=== PATIENT | female | born 1980 | race Caucasian/White ===

== ENCOUNTER 2017-02-07 20:33 | Emergency (ER) | payer OTHER ==
[2017-02-07 21:33] LABS: CALCIUM 8.4 mg/dL (8.5-10.1); CARBON DIOXIDE 24.3 mmol/L (21-32); CHLORIDE SERUM 104 mmol/L (98-107); CREATININE SERUM 0.7 mg/dL (0.6-1.0); GFR1 > 60 mL/min; GLUCOSE SERUM 107 mg/dL (74-106); POTASSIUM SERUM 3.2 mmol/L (3.5-5.1); SODIUM SERUM 140 mmol/L (136-145)
[2017-02-07 21:37] LABS: ALKALINE PHOSPHATASE 45 U/L (46-116); ALT/SGPT 18 U/L (14-59); AST/SGOT 15 U/L (15-37); BILIRUBIN TOTAL 0.29 mg/dL (0.20-1.00); LIPASE 506 IU/L (73-393); TOTAL PROTEIN, SERUM 7.6 g/dL (6.4-8.2)
[2017-02-07 23:28] VITALS: BP 124/89
== END 2017-02-07 23:28 | disposition home or self-care (01) ==
LOC: ED 20:33
PROVIDERS: Emergency Medicine
DX: R10.13 Epigastric pain (principal); K85.90 Acute pancreatitis without necrosis or infection, unspecified
CPT/HCPCS: J0500; J2270; J7030; Q0092

== ENCOUNTER 2017-12-19 10:44 | Emergency (ER) | payer OTHER ==
[~2017-12-19] VITALS: Ht 160 cm; Wt 61.7 kg
[2017-12-19 10:55] VITALS: BP 125/69; Ht 160 cm; Wt 61.7 kg
[2017-12-22 11:28] LABS: RAPID PLASMA REAGIN Non Reactive (Non Reactive)
== END 2017-12-19 12:22 | disposition home or self-care (01) ==
LOC: ED 10:44
PROVIDERS: Emergency Medicine
DX: N76.0 Acute vaginitis (principal)
CPT/HCPCS: 82962; 87491; 87591

== ENCOUNTER 2018-04-14 16:19 | Emergency (ER) | payer OTHER ==
[~2018-04-14] VITALS: Ht 160 cm; Wt 66.7 kg
[2018-04-14 16:23] VITALS: BP 130/67; Ht 160 cm; Wt 66.7 kg
== END 2018-04-14 18:00 | disposition home or self-care (01) ==
LOC: ED 16:19
DX: J06.9 Acute upper respiratory infection, unspecified (principal)
CPT/HCPCS: J1100

== ENCOUNTER 2019-05-21 22:12 | Emergency (ER) | payer OTHER ==
[~2019-05-21] VITALS: Ht 160 cm; Wt 67.7 kg
[2019-05-21 23:46] VITALS: BP 125/87
== END 2019-05-21 23:46 | disposition home or self-care (01) ==
LOC: ED 22:12
DX: J02.9 Acute pharyngitis, unspecified (principal); R03.0 Elevated blood-pressure reading, without diagnosis of hypertension
CPT/HCPCS: J1100

== ENCOUNTER 2019-05-30 21:20 | Emergency (ER) | payer OTHER ==
[~2019-05-30] VITALS: Ht 160 cm; Wt 70.8 kg
[2019-05-30 21:39] VITALS: Ht 160 cm; Wt 70.8 kg
[2019-05-30 23:06] VITALS: BP 132/93
== END 2019-05-30 23:06 | disposition home or self-care (01) ==
LOC: ED 21:20
DX: J02.0 Streptococcal pharyngitis (principal)
CPT/HCPCS: J2920; J7512

== ENCOUNTER 2019-06-12 19:25 | Emergency (ER) | payer OTHER ==
[~2019-06-12] VITALS: Ht 160 cm; Wt 68.5 kg
[2019-06-12 21:46] VITALS: BP 129/77
== END 2019-06-12 21:46 | disposition home or self-care (01) ==
LOC: ED 19:25
DX: J06.9 Acute upper respiratory infection, unspecified (principal)
CPT/HCPCS: J1100

== ENCOUNTER 2019-10-24 22:31 | Emergency (ER) | payer OTHER ==
[~2019-10-24] VITALS: Ht 162.6 cm; Wt 67.6 kg
[2019-10-24 22:35] VITALS: Ht 162.6 cm; Wt 67.6 kg
[2019-10-24 23:10] VITALS: BP 114/79
== END 2019-10-24 23:10 | disposition home or self-care (01) ==
LOC: ED 22:31
DX: B09 Unspecified viral infection characterized by skin and mucous membrane lesions (principal); J02.9 Acute pharyngitis, unspecified

== ENCOUNTER 2019-11-04 15:03 | Emergency (ER) | payer OTHER ==
[~2019-11-04] VITALS: Ht 160 cm; Wt 68.0 kg
[2019-11-04 15:07] VITALS: Ht 160 cm; Wt 68.0 kg
[2019-11-04 16:10] VITALS: BP 127/64
== END 2019-11-04 16:10 | disposition home or self-care (01) ==
LOC: ED 15:03
DX: L42 Pityriasis rosea (principal)

== ENCOUNTER 2020-01-09 16:36 | Emergency (ER) | payer OTHER ==
[~2020-01-09] VITALS: Ht 165.1 cm; Wt 66.7 kg
[2020-01-09 16:43] VITALS: BP 111/83; Ht 165.1 cm; Wt 66.7 kg
== END 2020-01-09 16:58 | disposition home or self-care (01) ==
LOC: ED 16:36
DX: H92.03 Otalgia, bilateral (principal); H69.93 Unspecified Eustachian tube disorder, bilateral